=== PATIENT | male | born 1995 | race Caucasian/White ===

== ENCOUNTER 2019-03-27 16:17 | Emergency (ER) | payer MEDICAID ==
[~2019-03-27] VITALS: Ht 172.7 cm; Wt 99.6 kg
[~2019-03-27 16:17] MED LIST: LIDOcaine 1% W/epiNEPHrine 1:100,000 20ml vial ONE
--- NOTE | 2019-03-27 17:27 | NUR ---
[place] PARKS AT BEDSIDE TO [facility] PT
[2019-03-27] MEDS ORDERED: CEPH500C5 PO (17:55)
[2019-03-27] MEDS ORDERED: SULF1TAB49 PO (17:55)
--- NOTE | 2019-03-27 18:12 | NUR ---
DRESSED WOUND WITH XEROFORM, 4X4 GUAZE AND COBAN, GAVE PT LEFT OVER DRESSINGS, PT VERBALIZED UNDERSTANDING DRESSING CHANGES
[2019-03-27 18:26] VITALS: BP 142/64
== END 2019-03-27 18:27 | disposition home or self-care (01) ==
LOC: ER 16:17
DX: L02.413 Cutaneous abscess of right upper limb (principal); Z79.2 Long term (current) use of antibiotics
CPT/HCPCS: 10060; 99283

== ENCOUNTER 2019-09-22 18:38 | Emergency (ER) | payer MEDICAID ==
[~2019-09-22] VITALS: Ht 172.7 cm; Wt 100.0 kg
[2019-09-22 18:41] VITALS: BP 167/86
--- NOTE | 2019-09-22 19:00 | NUR ---
PT FAMILY MEMEBER ALIA SUE [phone]
--- NOTE | 2019-09-22 19:16 | NUR ---
PT FAMILY TO [facility] TO SPEAK WITH PROVIDER REQUESTED.
[2019-09-22 19:24] LABS: CLARITY,URINE CLEAR (Clear); COLOR,URINE YELLOW (Yellow); GLUCOSE, URINE NEGATIVE (Neg); KETONES,URINE NEGATIVE (Neg); LEUKOCYTE ESTERASE ,URINE NEGATIVE (Neg); NITRITES, URINE NEGATIVE (Neg); OCCULT BLOOD,URINE NEGATIVE (Neg); PH,URINE 6.5 (4.8-8.0); PROTEIN,URINE NEGATIVE (Neg); UROBILINOGEN,URINE 0.2 E.U/dL (0.2-1.0)
[2019-09-22 19:29] LABS: UA COLLECTION TYPE CLN CATCH MIDSTREAM
[2019-09-22 19:34] LABS: BASOPHILS # (AUTO) 0.1 X10'3 (0-0.2); BASOPHILS % (AUTO) 0.9 % (0-1); EOSINOPHILS # (AUTO) 0.3 X10'3 (0-0.9); EOSINOPHILS % (AUTO) 2.8 % (0-6); HEMATOCRIT 48.2 % (42.0-52.0); HEMOGLOBIN 16.8 g/dl (14.0-17.9); LYMPHOCYTES # (AUTO) 2.4 X10'3 (1.1-4.8); LYMPHOCYTES % (AUTO) 26.9 % (21-51); MEAN CORPUSCULAR HEMOGLOBIN 30.5 PG (27.0-31.0); MEAN CORPUSCULAR HGB CONC 34.8 g/dL (33.0-36.5); MEAN CORPUSCULAR VOLUME 87.7 FL (78-98); MEAN PLATELET VOLUME 8.2 FL (7.4-10.4); MONOCYTES # (AUTO) 0.4 X10'3 (0-0.9); MONOCYTES % (AUTO) 4.6 % (2-12); NEUTROPHILS # (AUTO) 5.9 X10'3 (1.8-7.7); NEUTROPHILS % (AUTO) 64.8 % (42-75); PLATELET COUNT 247 X10'3 (140-440); RED BLOOD COUNT 5.49 X10'6 (4.70-6.10); RED CELL DISTRIBUTION WIDTH 12.9 % (11.5-14.5); WHITE BLOOD COUNT 9.1 X10'3 (4.5-11.0)
[2019-09-22 19:37] LABS: URINE AMPHETAMINE SCREEN NEGATIVE (Neg); URINE BARBITUATE SCREEN NEGATIVE (Neg); URINE BENZODIAZEPINES SCREEN NEGATIVE (Neg); URINE CANNABINOID SCREEN NEGATIVE (Neg); URINE COCAINE SCREEN NEGATIVE (Neg); URINE METHADONE SCREEN NEGATIVE (Neg); URINE OPIATE SCREEN NEGATIVE (Neg); URINE PHENCYCLIDINE SCREEN NEGATIVE (Neg)
[2019-09-22 19:46] LABS: ALANINE AMINOTRANSFERASE 73 U/L (12-78); ALBUMIN 3.9 G/DL (3.4-5.0); ALKALINE PHOSPHATASE 71 IU/L (46-116); ANION GAP 7 (8-16); ASPARTATE AMINO TRANSFERASE 42 U/L (10-37); BILIRUBIN,TOTAL 0.7 MG/DL (0.1-1.0); BLOOD UREA NITROGEN 14 MG/DL (7-18); BUN/CREATININE RATIO 11.9 (5.4-32.0); CALCIUM 9.1 MG/DL (8.5-10.1); CHLORIDE 104 MMOL/L (99-107); CREATININE 1.18 MG/DL (0.60-1.10); ETHANOL < 0.010 GM/DL (0.0-0.010); GLUCOSE 142 MG/DL (70-104); POTASSIUM 3.5 MMOL/L (3.5-5.1); SODIUM 140 MMOL/L (135-145); TOTAL CARBON DIOXIDE 29.5 MMOL/L (24-32); eGFR 78 ML/MIN
== END 2019-09-22 20:15 | disposition home or self-care (01) ==
LOC: ER 18:38
DX: R41.0 Disorientation, unspecified (principal); R53.83 Other fatigue; F12.90 Cannabis use, unspecified, uncomplicated
CPT/HCPCS: 36415; 70450; 80053; 80305; 80320; 81003; 85025; 99284

== ENCOUNTER 2021-10-15 16:55 | Emergency (ER) | payer MEDICAID ==
[~2021-10-15] VITALS: Ht 172.7 cm; Wt 97.7 kg
[2021-10-15 16:59] VITALS: BP 151/116
[2021-10-15 18:07] LABS: CLARITY,URINE CLEAR (Clear); COLOR,URINE YELLOW (Yellow); GLUCOSE, URINE NEGATIVE (Neg); KETONES,URINE NEGATIVE (Neg); LEUKOCYTE ESTERASE ,URINE NEGATIVE (Neg); NITRITES, URINE NEGATIVE (Neg); OCCULT BLOOD,URINE NEGATIVE (Neg); PROTEIN,URINE NEGATIVE (Neg); UROBILINOGEN,URINE 0.2 E.U/dL (0.2-1.0)
[2021-10-15 18:09] LABS: UA COLLECTION TYPE CLN CATCH MIDSTREAM
[2021-10-15] MEDS ORDERED: CefTRIAXone 1000mg IM Kit (w/lidocaine diluent) IM ONE (21:05)
[2021-10-15] MEDS ORDERED: azithromycin 250mg tablet PO ONE (21:05)
--- NOTE | 2021-10-15 21:16 | NUR ---
im given po med given
== END 2021-10-15 21:43 | disposition home or self-care (01) ==
LOC: ER 16:56
DX: N43.2 Other hydrocele (principal)
CPT/HCPCS: 76870; 81003; 93976; 96372; 99284; J0696

== ENCOUNTER 2023-04-20 22:42 | Emergency (ER) | payer MEDICAID ==
[~2023-04-20] VITALS: Ht 172.7 cm; Wt 102.3 kg
[2023-04-20 22:55] VITALS: BP 173/96; PULSE 83; RESP 18; TEMP 97.2; O2SAT 99
== END 2023-04-21 06:24 | disposition left against medical advice (07) ==
LOC: ER 22:43
DX: R10.30 Lower abdominal pain, unspecified (principal); M79.652 Pain in left thigh; Z53.21 Procedure and treatment not carried out due to patient leaving prior to being seen by health care provider
CPT/HCPCS: 99281